=== PATIENT | male | born 1975 | race Hispanic/Latino ===

== ENCOUNTER 2016-12-08 16:21 | Observation (INO) | payer MEDICARE, OTHER ==
[2016-12-08 16:31] VITALS: BMI 19.5
[2016-12-08 16:32] VITALS: O2SAT 100
--- NOTE | 2016-12-08 17:30 | RAD ---
PROCEDURE: CHEST RADIOGRAPH, 1 VIEW HISTORY: SOB COMPARISON: None available. FINDINGS: LUNGS: Clear. PLEURA: No pneumothorax or pleural fluid seen. CARDIOVASCULAR: Normal. OSSEOUS STRUCTURES: No significant abnormalities. VISUALIZED UPPER ABDOMEN: Normal. OTHER FINDINGS: None. IMPRESSION: No active disease.
[2016-12-08 17:41] LABS: BASO % 0.2 % (0.0-2.0); EOS # 0.1 K/uL (0.0-0.7); EOS % 1.2 % (0.0-4.0); HEMATOCRIT 38.4 % (35.0-51.0); LYMPH # 0.6 K/uL (1.0-4.3); LYMPH % 5.6 % (20.0-40.0); MEAN CORPUSCULAR HEMOGLOBIN 29.3 pg (27.0-31.0); MEAN CORPUSCULAR HGB CONC 32.9 g/dL (33.0-37.0); MEAN PLATELET VOLUME 8.3 fL (7.2-11.7); MONO # 0.8 K/uL (0.0-0.8); MONO % 7.2 % (0.0-10.0); PLATELET COUNT 239 K/uL (130-400); RED CELL DISTRIBUTION WIDTH 14.3 % (11.5-14.5); WHITE BLOOD COUNT 10.8 K/uL (4.8-10.8)
--- NOTE | 2016-12-08 17:42 | C.PDOC ---
History Of Present Illness 41 y/o female brought to ER by ambualce presenting heroin overdose. Patient was on Suboxone program "ran out" and decided to buy a bag of heroin and inject. EMS found patient apneic with pin point pupils and was given 4 mg of Narcan to reverse symptoms. Patient denies any dizziness, SOB, N/V/D. No other complaints at this time. Time Seen by Provider: 12/08/16 16:44 Chief Complaint (Nursing): Substance Abuse History Per: Patient History/Exam Limitations: no limitations Past Medical History Reviewed: Historical Data, Nursing Documentation, Vital Signs Vital Signs: Last Vital Signs Temp 98.1 F 12/08/16 16:31 Pulse 106 H 12/08/16 18:01 Resp 20 12/08/16 18:01 BP 122/82 12/08/16 16:31 Pulse Ox 100 12/08/16 17:49 Family History: States: Unknown Family Hx - Social History Hx Alcohol Use: No Hx Substance Use: Yes (heroin, suboxone) - Immunization History Hx Tetanus Toxoid Vaccination: Yes Hx Influenza Vaccination: Yes Hx Pneumococcal Vaccination: Yes Review Of Systems Except As Marked, All Systems Reviewed And Found Negative. Constitutional: Negative for: Fever, Chills Cardiovascular: Negative for: Chest Pain Respiratory: Negative for: Shortness of Breath Gastrointestinal: Negative for: Nausea, Vomiting, Diarrhea Skin: Negative for: Rash Psych: Negative for: Anxiety Physical Exam - Physical Exam Appears: No Acute Distress Skin: Normal Color, Warm Head: Atraumatic, Normacephalic Eye(s): bilateral: Normal Inspection, EOMI Oral Mucosa: Moist Neck: Normal ROM Cardiovascular: Rhythm Regular Respiratory: No Rales, No Rhonchi, No Wheezing Extremity: Normal ROM Neurological/Psych: Oriented x3, Normal Speech, Normal Cognition ED Course And Treatment - Laboratory Results Result Diagrams: 12/08/16 17:36 O2 Sat by Pulse Oximetry: 100 Reevaluation Time: 18:02 Reassessment Condition: Improved (pt dressed and wants immediate d/c. explained high risk of recurrent OD and to have Narcan handy in case of repeat OD- pt and girlfriend @ bedside verbalized understanding.) Medical Decision Making Medical Decision Making: accidental self-inflicted narcotics overdose. Disposition Doctor Will See Patient In The: Office - Disposition Disposition: AGAINST MEDICAL ADVICE Disposition Time: 18:03 Condition: GOOD - Clinical Impression Clinical Impression: Narcotic overdose - PA / [employer] WORK[employer] / Resident Statement MD/DO has reviewed & agrees with the documentation as recorded. MD/DO has examined the patient and agrees with the treatment plan. - Scribe Statement The provider has reviewed the documentation as recorded by the Nomanibvida Casiano All medical record entries made by the Vikram were at my direction and personally dictated by me. I have reviewed the chart and agree that the record accurately reflects my personal performance of the history, physical exam, medical decision making, and the department course for this patient. I have also personally directed, reviewed, and agree with the discharge instructions and disposition.
[2016-12-08 18:02] VITALS: RESP 20
[2016-12-08 18:03] LABS: RBC URINE 5 /hpf (0-3); URINE BACTERIA RARE (<OCC); URINE BILIRUBIN NEGATIVE (NEGATIVE); URINE BLOOD NEGATIVE (NEGATIVE); URINE COLOR Yellow (YELLOW); URINE GLUCOSE (UA) 2+ mg/dL (Normal); URINE KETONE NEGATIVE (NEGATIVE); URINE LEUKOCYTE ESTERASE NEG Leu/uL (Negative); URINE PROTEIN 2+ mg/dL (NEGATIVE); URINE UROBILINOGEN NORMAL mg/dL (0.2-1.0); WBC URINE 8 /hpf (0-5)
[2016-12-08 18:04] VITALS: BP 114/80; PULSE 107; TEMP 97.8
[2016-12-08 18:10] LABS: CHLORIDE 97 mmol/L (98-107); SODIUM 139 mmol/L (132-148)
[2016-12-08 18:11] LABS: POTASSIUM 4.3 mmol/L (3.6-5.2)
[2016-12-08 18:12] LABS: GFR AFRICAN-AMERICAN > 60
[2016-12-08 18:13] LABS: ALB/GLOB RATIO 1.3 (1.0-2.1); ALKALINE PHOSPHATASE 62 U/L (38-126); ALT/SGPT 51 U/L (21-72); AST/SGOT 67 U/L (17-59); BLOOD UREA NITROGEN 14 mg/dL (9-20); CALCIUM 8.5 mg/dl (8.6-10.4); CARBON DIOXIDE 29 mmol/L (22-30); GLUCOSE,RANDOM 125 mg/dL (75-110); TOTAL PROTEIN 7.4 g/dL (6.3-8.3)
[2016-12-08 18:14] LABS: ALCOHOL SERUM < 10 mg/dl (0-10)
[2016-12-08 18:20] LABS: BASOPHIL 1 % (0-2); EOSINOPHIL 1 % (0-4); LARGE PLATELETS PRESENT; NEUTROPHIL 86 % (50-75); TOTAL CELLS COUNTED 100
== END 2016-12-08 18:05 | disposition home or self-care (01) ==
LOC: C.ER 16:21 → C.9OBSV 16:46
PROVIDERS: ADMIT Internal Medicine; ATTEND Internal Medicine
DX: T40.1X4A Poisoning by heroin, undetermined, initial encounter (principal)
CPT/HCPCS: 71010; 80053; 81001; 84484; 85025; 99285; G0378; G0480

== ENCOUNTER 2016-12-11 19:42 | Emergency (ER) | payer MEDICARE, OTHER ==
[2016-12-11 19:42] VITALS: BMI 19.5
[2016-12-11 19:54] VITALS: RESP 20; TEMP 98.2
--- NOTE | 2016-12-11 20:15 | C.PDOC ---
History Of Present Illness pt od on heroin. found by girlfriend. narcan given by ems, pt back to [facility] Time Seen by Provider: 12/11/16 20:15 Chief Complaint (Nursing): Substance Abuse History Per: Patient History/Exam Limitations: no limitations Onset/Duration Of Symptoms: Hrs Current Symptoms Are (Timing): Better Suicide/Self Injury Attempted (Context): Other Modifying Factor(s): Narcotics Severity: Moderate Pain Scale Rating Of: 4 Associated Symptoms: Other (heroin) Recent travel outside of the [place]: No Additional History Per: Patient Past Medical History Reviewed: Historical Data, Nursing Documentation, Vital Signs Vital Signs: Last Vital Signs Temp 98.2 F 12/11/16 19:46 Pulse 112 H 12/11/16 19:46 Resp 20 12/11/16 19:46 BP 140/96 H 12/11/16 19:46 Pulse Ox 96 12/11/16 21:17 Family History: States: No Known Family Hx - Social History Hx Alcohol Use: No Hx Substance Use: Yes (heroin, suboxone) - Immunization History Hx Tetanus Toxoid Vaccination: Yes Hx Influenza Vaccination: Yes Hx Pneumococcal Vaccination: Yes Review Of Systems Constitutional: Negative for: Fever, Chills ENT: Negative for: Throat Pain Cardiovascular: Negative for: Chest Pain Respiratory: Negative for: Shortness of Breath Gastrointestinal: Negative for: Nausea, Vomiting, Abdominal Pain Genitourinary: Negative for: Dysuria Musculoskeletal: Negative for: Back Pain Skin: Negative for: Rash, Lesions, Jaundice Neurological: Negative for: Weakness Psych: Negative for: Anxiety Physical Exam - Physical Exam Appears: Non-toxic, No Acute Distress Skin: Warm, Dry Head: Normacephalic Eye(s): bilateral: Normal Inspection, PERRL, EOMI Oral Mucosa: Moist Neck: Trachea Midline, Supple Chest: Symmetrical Cardiovascular: Rhythm Regular Respiratory: No Rales, No Rhonchi, No Wheezing Gastrointestinal/Abdominal: Soft, No Tenderness, No Distention Back: Normal Inspection Extremity: Normal ROM Extremity: Bilateral: Atraumatic, Normal Color And Temperature Neurological/Psych: Oriented x3, Normal Speech, Normal Cognition Gait: Steady ED Course And Treatment O2 Sat by Pulse Oximetry: 96 Pulse Ox Interpretation: Normal Reevaluation Time: 21:14 Reassessment Condition: Improved Disposition Counseled Patient/Family Regarding: Studies Performed, Diagnosis, Need For Followup - Disposition Referrals: [facility] [Outside] [facility] [Outside] Disposition: HOME/ ROUTINE Disposition Time: 20:15 Condition: FAIR Instructions: Narcotic Abuse (ED) - Clinical Impression Clinical Impression: Narcotic overdose
[2016-12-11 21:40] VITALS: BP 120/82; PULSE 76; O2SAT 100
== END 2016-12-11 21:48 | disposition home or self-care (01) ==
LOC: C.ER 19:42
DX: T40.1X1A Poisoning by heroin, accidental (unintentional), initial encounter (principal)